=== PATIENT | female | born 1955 | race Hispanic/Latino ===

== ENCOUNTER 2024-12-31 20:23 | Emergency (ER) | payer MEDICARE, MEDICAID ==
[~2024-12-31] VITALS: Ht 144.8 cm; Wt 59.0 kg
[~2024-12-31 20:23] MED LIST: CYCLOBENZAPRINE5 MG PO; DOXYCYCLINE HY100 MG PO; ONDANSETRON ODT4 MG PO
[2024-12-31 20:30] VITALS: PULSE 86; RESP 18; TEMP 98.6
[2024-12-31 22:43] LABS: BASOPHILS % 0.3 % (0.0-1.0); EOSINOPHILS % 2.3 % (0.0-6.0); LYMPHOCYTES % 29.9 % (18.0-39.1); MONOCYTES % 6.0 % (4.4-11.3); NEUTROPHILS % 61.2 % (38.7-80.0); RED CELL DISTRIBUTION WIDTH 13.7 % (11.7-14.4)
[2024-12-31 23:02] LABS: EST GLOMERULAR FILTRATION RATE 63.0 ML/MIN (>=60)
[2024-12-31] MEDS ORDERED: NAPROXEN375 MG PO (23:33)
[2025-01-01 00:30] VITALS: BP 138/84; PULSE 74; RESP 18; TEMP 98.3; O2SAT 98
== END 2024-12-31 23:58 | disposition home or self-care (01) ==
LOC: ER 20:27
DX: M79.621 Pain in right upper arm (principal); R07.89 Other chest pain; I10 Essential (primary) hypertension; E11.65 Type 2 diabetes mellitus with hyperglycemia; J44.9 Chronic obstructive pulmonary disease, unspecified; F41.9 Anxiety disorder, unspecified; M19.09 Primary osteoarthritis, other specified site; Z86.73 Personal history of transient ischemic attack (TIA), and cerebral infarction without residual deficits
CPT/HCPCS: 36415; 71046; 80053; 84484; 85025; 93005; 99284